=== PATIENT | male | born 1965 | race Caucasian/White ===

== ENCOUNTER 2018-01-05 13:20 | Observation (INO) ==
[2018-01-05 16:00] LABS: Basophils # 0.1 10*3/uL (0.0-0.2); Basophils % 1.4 % (0.0-0.8); Eosinophils # 0.2 10*3/uL (0.0-0.87); Eosinophils % 1.6 % (0.00-10.9); Hematocrit 45.4 VOL% (42.0-52.0); Hemoglobin 15.6 GM/DL (14.0-18.0); Immature Granulocytes % 0.4 %; Immature Granulocytes Absolute 0.04 #; Lymphocytes # 2.5 10*3/uL (1.4-4.0); Lymphocytes % 27.2 % (21.2-54.2); Mean Corpuscular HGB Conc 34.4 GM/DL (32-36); Mean Corpuscular Hemoglobin 33 PG (27-34); Mean Corpuscular Volume 95.2 FL (87-102); Mean Platelet Volume 9.6 FL (9.6-12.0); Monocytes # 0.8 10*3/uL (0.11-0.8); Monocytes % 8.3 % (1.7-12.7); Neutrophils # 5.6 10*3/uL (1.4-7.4); Neutrophils % 61.1 % (38.7-73.9); Platelet Count 320 T/CUMM (130-400); Red Blood Count 4.77 MC/CUMM (3.8-5.5); Red Cell Distribution Width 13.4 % (9.3-17.3); White Blood Count 9.3 T/CUMM (4-12)
[2018-01-05] MEDS ORDERED: cloNIDine 0.1 MG TABLET PO STA (16:45)
[2018-01-05 16:49] LABS: Alanine Aminotransferase 49 U/L (16-61); Alkaline Phosphatase 106 U/L (45-117); Aspartate Amino Transferase 34 U/L (0-37); Calcium 8.9 MG/DL (8.5-10.1)
[2018-01-05 16:50] LABS: Albumin 3.9 G/DL (3.4-5.0); Bilirubin,Total < 0.39 MG/DL (0.2-1.0); Blood Urea Nitrogen 7 MG/DL (7-18); Glucose 91 MG/DL (74-106); Total Protein 7.8 G/DL (6.4-8.3)
[2018-01-05 16:52] LABS: Osmolality,Calculated 278.3 MOS/KG (273-304); Sodium 141 MMOL/L (136-145)
[2018-01-05] MEDS ORDERED: cloNIDine 0.1 MG TABLET ONE ×2 (16:57→17:00)
[2018-01-05 17:54] LABS: Apearance,Urine CLEAR (Clear); Bilirubin,Urine Negative (Negative); Blood, Urine Negative (Negative); Glucose,Urine (UA) Negative (Negative); Ketones,Urine Negative (Negative); Mucus,Urine Occasional /LPF (Occasional); Nitrite,Urine Negative (Negative); Protein,Urine Negative; RBC,Urine 1 /HPF (0-4); Urine Color Yellow (Yellow); Urine Specific Gravity 1.014 (1.001-1.035); Urine Urobilinogen < 2.0 EU/DL (0.2-1.0); WBC,Urine <1 /HPF (0-6)
[2018-01-05] MEDS ORDERED: hydrALAZINE 20 MG/1 ML VIAL ONE (17:55)
[2018-01-05 17:56] LABS: PT Patient Result 10.7 SECS
[2018-01-05] MEDS ORDERED: hydrALAZINE 20 MG/1 ML VIAL IV STA (17:57)
[2018-01-05 20:11] LABS: Barbiturates Screen,Urine Negative (Negative); Benzodiazepines Screen,Urine Negative (Negative); Cannabinoid Screen,Urine Negative (Negative); Opiate Screen,Urine Negative (Negative); Phencyclidine Screen,Urine Negative (Negative)
[2018-01-05] MEDS ORDERED: ACETAMINOPHEN 325 MG TABLET PO PRN (21:30)
[2018-01-05] MEDS ORDERED: ONDANSETRON 4 MG/2 ML VIAL IV PRN (21:30)
[2018-01-05] MEDS ORDERED: diphenhydrAMINE CAP 25 MG CAPSULE PO PRN (21:30)
[2018-01-05] MEDS ORDERED: NICOTINE 21 MG/24 HR PATCH TRANSDERM PRN (21:30)
[2018-01-05] MEDS ORDERED: DOCUSATE SODIUM 100 MG CAPSULE PO PRN (21:30)
[2018-01-05] MEDS ORDERED: traZODone 50 MG TABLET PO PRN (21:30)
[2018-01-05] MEDS ORDERED: ENOXAPARIN 100 MG/ML SYRINGE SUBCUT SCH (22:30)
[2018-01-06] MEDS ORDERED: hydrALAZINE 20 MG/1 ML VIAL IV PRN (01:15)
[2018-01-06] MEDS: PANTOPRAZOLE 40 MG TABLET PO SCH ×2 (02:25→08:10)
[2018-01-06 04:51] LABS: Basophils # 0.1 10*3/uL (0.0-0.2); Basophils % 1.1 % (0.0-0.8); Eosinophils # 0.2 10*3/uL (0.0-0.87); Eosinophils % 1.9 % (0.00-10.9); Hematocrit 43.7 VOL% (42.0-52.0); Hemoglobin 15.2 GM/DL (14.0-18.0); Immature Granulocytes % 0.3 %; Immature Granulocytes Absolute 0.03 #; Lymphocytes # 2.8 10*3/uL (1.4-4.0); Lymphocytes % 30.1 % (21.2-54.2); Mean Corpuscular HGB Conc 34.8 GM/DL (32-36); Mean Corpuscular Hemoglobin 32 PG (27-34); Mean Corpuscular Volume 92.4 FL (87-102); Mean Platelet Volume 10.3 FL (9.6-12.0); Monocytes % 10.7 % (1.7-12.7); Neutrophils # 5.1 10*3/uL (1.4-7.4); Neutrophils % 55.9 % (38.7-73.9); Platelet Count 273 T/CUMM (130-400); Red Blood Count 4.73 MC/CUMM (3.8-5.5); Red Cell Distribution Width 13.2 % (9.3-17.3); White Blood Count 9.2 T/CUMM (4-12)
[2018-01-06 05:08] LABS: Calcium 8.9 MG/DL (8.5-10.1); Osmolality,Calculated 277.4 MOS/KG (273-304); Potassium 3.3 MMOL/L (3.5-5.1)
[2018-01-06 08:58] VITALS: BP 131/65
[2018-01-06] MEDS ORDERED: amLODIPine 10 MG TABLET PO SCH (09:00)
[2018-01-06] MEDS ORDERED: APIXABAN 5 MG TABLET PO SCH (09:30)
== END 2018-01-06 09:55 | disposition home or self-care (01) ==
LOC: N.ICU 13:20 → N.ED 13:20 → SUATTDRO 21:30 → N.ICU 01-06 02:15
PROVIDERS: ADMIT Internal Medicine; ATTEND Internal Medicine Geriatric Medicine